=== PATIENT | male | born 1980 | race Caucasian/White ===

== ENCOUNTER 2018-02-08 22:08 | Emergency (ER) | payer OTHER ==
[~2018-02-08] VITALS: Ht 188 cm; Wt 83.9 kg
--- NOTE | 2018-02-08 22:25 | Emergency Room Report ---
History of Present Illness General Chief Complaint: Lower Extremity Injury Source: Patient Present Illness HPI Is a 37-year-old male with a history of right anterior cruciate ligament tear and recurrent patella dislocation. He presents with chief complaint of right patella dislocation. Onset was acute while he was dancing during a Halloween constitution party. Usually is able to reduce by itself. He was unable to reduce it and said they try to push it in and now is hurting. He was splinted and brought in by EMS. He said while being transferred to the stretcher he felt a pop. Now most of his pain over the right medial aspect the knee. Worse with movement. Pain is 8 out of 10. No nausea no vomiting. No fever chills. Better after getting Toradol. Allergies: Coded Allergies: No Known Allergies (Unverified , 02/08/18) Patient History Past Medical History: see triage record, old chart reviewed Past Surgical History: other Pertinent Family History: none Social History: Denies: smoking Immunizations: other Reviewed Nursing Documentation: PMH: Agreed; PSxH: Agreed Nursing Documentation-PMH Past Medical History: No History, Except For Hx Cardiac Problems: No - ACL injury in 1997 Review of Systems Eye: Denies: eye pain, blurred vision ENT: Denies: ear pain, nose congestion, throat swelling Respiratory: Denies: cough, shortness of breath Cardiovascular: Denies: chest pain, palpitations Gastrointestinal: Denies: abdominal pain, diarrhea, nausea, vomiting Musculoskeletal: Reports: joint pain; Denies: back pain Skin: Denies: rash Neurological: Denies: headache, numbness Endocrine: Denies: increased thirst, increased urine Hematologic/Lymphatic: Denies: easy bruising All Other Systems: negative except mentioned in HPI Physical Exam Vital Signs Date Time Temp Pulse Resp B/P (MAP) Pulse Ox O2 Delivery O2 Flow Rate FiO2 02/08/18 22:09 98.2 70 14 130/84 94 Room Air vitals normal Sp02 EP Interpretation: reviewed, normal General Appearance: well appearing, no apparent distress, alert Head: normocephalic, atraumatic Eyes: bilateral eye PERRL, bilateral eye EOMI ENT: hearing grossly normal, normal pharynx Neck: full range of motion, supple, no meningismus Respiratory: chest non-tender, lungs clear, normal breath sounds Cardiovascular #1: regular rate, rhythm, no murmur Gastrointestinal: normal bowel sounds, non tender, no mass, no organomegaly, no bruit, non-distended Musculoskeletal: back normal, other - Right knee: No deformity. Tender to the medial aspect of the knee. Decreased range of motion secondary to pain. No dislocation. Pulses normal. No edema. Neurologic: alert, oriented x3 Psychiatric: mood/affect normal Skin: warm/dry Procedures Splinting Splinting : Consent: Verbal Location: Rt knee Pre-Made Type: knee immobilizer Pre-Proc Neuro Vasc Exam: normal Post-Proc Neuro Vasc Exam: normal Patient Tolerated: Well Complications: None Medical Decision Making Diagnostic Impression: Primary Impression: Patellar dislocation Qualified Codes: S83.004A - Unspecified dislocation of right patella, initial encounter ER Course Patient with a patella dislocation. No evidence of any fracture. His spontaneous reduce as he was being transfer from [facility] to ER bed. He has some pain over the knee but x-ray showed no evidence any fracture. This may be ligament or tendon injury. We'll discharge home. Last Vital Signs Date Time Temp Pulse Resp B/P (MAP) Pulse Ox O2 Delivery O2 Flow Rate FiO2 02/08/18 22:09 98.2 70 14 130/84 94 Room Air Status: improved Disposition: HOME, SELF-CARE Condition: Stable Scripts Ibuprofen* (MOTRIN*) 600 Mg Tablet 600 MG ORAL THREE TIMES A DAY, #30 TAB 0 Refills Prov: Mulugeta Sanchez MD 02/08/18 Additional Instructions: Follow-up your doctor in 7 days. You may need an MRI of your knee and referral to see orthopedic doctor. Return if symptom worsen. Mulugeta Sanchez MD Feb 08, 2018 22:25
[2018-02-08] MEDS ORDERED: Morphine Sulfate 4mg/ml Inj (IV/IM USE ONLY) IVP ONE (22:30)
[2018-02-08] MEDS ORDERED: IBUPROFEN600 MG ORAL (23:15)
[2018-02-08 23:25] VITALS: BP 130/80
--- NOTE | 2018-02-09 08:46 | Diagnostic Imaging Report ---
Indication: Trauma, pain, twisted knee dancing, history of patellar dislocations Technique: 4 views of the right knee Comparison: None Findings: No acute fractures. No definite dislocations. True AP view not available, however, so some lateral patellar subluxation cannot be completely excluded although there is no definite evidence of such. No suprapatellar effusion. The joint spaces are preserved Impression: No acute process
== END 2018-02-08 23:25 | disposition home or self-care (01) ==
LOC: EDBD 22:08 → EMR 22:51
DX: M22.01 Recurrent dislocation of patella, right knee (principal)
CPT/HCPCS: 73564; 96374; 96375; 99284; J2270; J2405; 29515